=== PATIENT | female | born 1975 | race Caucasian/White ===

== ENCOUNTER 2022-05-21 08:35 | Emergency (ER) | payer BC, SELFPAY ==
[2022-05-21 08:56] VITALS: BP 131/74; PULSE 75; RESP 14; TEMP 36.3; O2SAT 99
--- NOTE | 2022-05-21 09:24 | ED.URI ---
HPI - URI/Sore Throat General Chief Complaint: Upper Respiratory Infection Stated Complaint: Sinus Time Seen by Provider: 05/21/22 09:24 Source: patient Mode of arrival: ambulatory Limitations: no limitations History of Present Illness HPI Narrative: patient is a 47-year-old female that presents with sinus congestion, sore throat, ear fullness for almost 2 weeks. patient was in [place] and states the smoke made symptoms worse. Has been taking Claritin and Flonase with mild relief, bloody nose with Flonase use. patient has allergy test next . Related Data Home Medications Medication Instructions Recorded Confirmed albuterol sulfate 90 mcg/actuation 2 puff inhalation DIRECTED PRN 05/21/22 05/21/22 aerosol inhaler Wheezing pantoprazole 40 mg tablet,delayed 40 mg PO DAILY 05/21/22 05/21/22 release Allergies Allergy/AdvReac Type Severity Reaction Status Date / Time No Known Allergies Allergy Unknown Verified 05/21/22 09:11 Review of Systems Review of Systems: All systems reviewed & are unremarkable except as noted in HPI and below Constitutional: Constitutional: Denies body ache(s), Denies fever(s), Denies headache(s), Denies malaise and Denies weakness Eyes: Eyes: Denies loss of vision ENT: Reports otalgia, Denies headache(s), Reports nasal congestion, Denies sinus pain and Reports sore throat Cardiovascular: Cardiovascular: Denies chest pain, Denies irregular heart rhythm and Denies dyspnea Respiratory: Respiratory: Reports cough and Denies dyspnea Gastrointestinal: Gastrointestinal: Denies abdominal pain, Denies melena, Denies hematochezia, Denies diarrhea, Denies nausea and Denies vomiting Musculoskeletal: Musculoskeletal: Denies back pain, Denies myalgias and Denies arthralgias Integumentary/Breasts: Skin/Breast: Denies pruritus and Denies rash Neurologic: Denies headache(s), Denies loss of vision and Denies weakness Psychiatric: Psychiatric: Reports no additional psychiatric complaints PMFSH Comments At time of signature, agree with nursing past medical, surgical, social and family history. There is no relevant family history pertinent to the presenting complaint. Exam Const: General: cooperative, healthy appearing, comfortable, no acute distress and well nourished Nutritional Appearance: well nourished Orientation/consciousness: patient oriented x3 Limitations: no limitations HENMT: Head: normal to inspection, normocephalic and atraumatic Ears: external ears normal and TM's normal bilaterally Face/Nose/Sinus: Normal external nose present, Abnormal mucous membranes and turbinates present erythematous bilateral, face symmetric and Facial tenderness on exam of face and sinuses Face and sinus: normal facial exam, sinuses nontender and face symmetric Mouth: Yes Normal oral and palatal mucosa present, Yes lip normal and Yes moist mucous membranes Teeth and gingiva: dentition normal Throat: posterior oropharynx normal, tonsils normal and uvula midline Eyes: General: appearance normal, both eyes and all related structures Alignment and Position: alignment normal and position normal Periorbital: periorbital findings normal Eyelids: eyelids normal Pupils: Equal, round and reactive pupils present Neck: Neck: normal visual inspection, full ROM and supple Chest: Chest palpation & inspection: normal inspection of the chest and normal palpation of entire chest wall Resp: Effort & Inspection: normal respiratory effort and able to speak in complete sentences Auscultation: clear to auscultation bilaterally, no crackles, no rales, no rhonchi and no wheezes Cardio: Rate: regular rate Rhythm: regular rhythm Heart sounds: S1 normal heart sound present and S2 normal heart sound present GI: Inspection: normal to inspection Skin: General skin exam: normal color and no rashes or lesions noted Neuro: General: patient oriented x3 and moves all extremities Cranial nerves: Yes Equal, round and reac
== END 2022-05-21 09:50 | disposition home or self-care (01) ==
PROVIDERS: Emergency Provider Nurse Practitioner Family
DX: J02.9 Acute pharyngitis, unspecified (principal)
CPT/HCPCS: 99213; G0463

== ENCOUNTER 2023-02-02 15:57 | Emergency (ER) | payer BC, SELFPAY ==
--- NOTE | ~2023-02-02 | XR_ITS ---
EXAMINATION: XR knee RT min 4V DATE: 02/02/2023 18:24 INDICATION: Right knee pain with bruising and swelling at the patella post fall TECHNIQUE: Anteroposterior, 2 oblique and crosstable lateral views of the right knee were obtained COMPARISON: None. FINDINGS: Alignment is normal. No fracture. Joint spaces appear normal on nonweightbearing imaging. No joint e ffusion/layering lipohemarthrosis. Soft tissues are unremarkable. IMPRESSION: 1. Negative right knee radiographs. Reviewed, dictated and finalized at location A. CH THERAPY ASSISTANT
--- NOTE | ~2023-02-02 | XR_ITS ---
EXAMINATION: XR hip RT 2V w AP pelvis DATE: 02/02/2023 18:24 INDICATION: Right pelvic pain TECHNIQUE: Anteroposterior view of the pelvis and anteroposterior and frog-leg lateral views of the r ight hip were obtained. COMPARISON: None. FINDINGS: Bone alignment is normal. No fracture. Chronic appearing small heterotopic ossicle near the tip of th e right greater trochanter. Bilateral hip and sacroiliac joint spaces are normal. There are few phleb oliths in the pelvis. IMPRESSION: 1. No osseous abnormality. Reviewed, dictated and finalized at location A. Y ROLLER IMPRESSION: 1. No osseous abnormality.
--- NOTE | ~2023-02-02 | CT_ITS ---
EXAMINATION: CT brain wo con DATE: 02/02/2023 18:15 INDICATION: Head injury TECHNIQUE: Computed tomography (CT) of the head was performed without intravenous contrast. Sagittal and coronal reconstructions were performed. The mA was adjusted according to patient size. Iterative reconstruction technique was employed. The dose-length product was 605.33 mGy-cm. COMPARISON: None FINDINGS: Small anterior right frontal scalp hematoma. No calvarial fracture. No acute intracranial hemorrhage, acute infarction or abnormal extra axial fluid collection. Ventricles are normal and symmetric. No m ass/mass effect. The orbits, paranasal sinuses and mastoid air cells are normal. IMPRESSION: 1. Normal brain. No fracture or acute intracranial process. Reviewed, dictated and finalized at location A. WAY PATROL OFFICER
--- NOTE | ~2023-02-02 | CT_ITS ---
EXAMINATION: CT lumbar spine wo con DATE: 02/02/2023 18:15 INDICATION: Low back pain post fall. TECHNIQUE: Computed tomography (CT) of the lumbar spine was performed without intravenous contrast. A utomated exposure control and iterative reconstruction technique were employed. The dose-length produ ct was 1250.94 mGy-cm. COMPARISON: None FINDINGS: Alignment is normal. Vertebral body heights are normal. No fracture. And mild to moderate disc height loss with mild degenerative endplate changes at L5-S1. Remaining disc heights are normal. There are disc bulges resulting in mild central canal stenosis at L3-L4 and L4-L5 and without significant centr al canal stenosis at L5-S1. There is multilevel mild facet osteoarthritis throughout the lumbar and v isualized lower thoracic spine. There is moderate neural foraminal stenosis bilaterally at L5-S1, mil d neural foraminal stenosis bilaterally at L3-L4 and L4-L5. Paravertebral soft tissues are unremarkab le. IMPRESSION: 1. Mild to moderate spondylosis at L5-S1 with mild spondylosis in the more cephalad lumbar and lower thoracic spine. No acute osseous abnormality. Reviewed, dictated and finalized at location A. ERECTOR IMPRESSION: 1. Mild to moderate spondylosis at L5-S1 with mild spondylosis in the more ceph alad lumbar and lower thoracic spine. No acute osseous abnormality.
--- NOTE | ~2023-02-02 | CT_ITS ---
EXAMINATION: CT cervical spine wo con DATE: 02/02/2023 18:15 INDICATION: Head injury presenting with head and neck pain. TECHNIQUE: Computed tomography (CT) of the cervical spine was performed without intravenous contrast. Automated exposure control and iterative reconstruction technique were employed. The dose-length pro duct was 442.80 mGy-cm. COMPARISON: None FINDINGS: Alignment is normal. Mild osteoarthritis at the atlantoaxial articulation. Vertebral body heights are normal. Mild disc height loss at C5-C6, T3 and T3-T4. There is minimal cervical uncovertebral osteoa rthritis. There is multilevel mild to moderate cervical and upper thoracic facet osteoarthritis, most prominent on the left at C3-C4 and on the right at C7-T1. This contributes to only minimal neural fo raminal stenosis at a few levels in the cervical spine. No central canal stenosis. Visualized cervica l soft tissues are unremarkable. Visualized apices of lungs are clear. IMPRESSION: 1. Minimal to mild cervical thoracic spondylosis. No acute osseous abnormality. Reviewed, dictated and finalized at location A. IFIED PERFORMANCE TECHNOLOGIST
[2023-02-02 16:05] VITALS: BP 146/92; PULSE 86; RESP 20; TEMP 36.1; O2SAT 98
--- NOTE | 2023-02-02 17:58 | ED.HEATRA ---
HPI - Head Injury General Chief complaint: Head Injury Stated complaint: HEAD INJURY Time Seen by Provider: 02/02/23 17:46 Source: patient Mode of arrival: wheelchair Limitations: no limitations History of Present Illness HPI Narrative: This is a 47 year old female that presents to the ER for a head injury. Reports she slipped and fell off her porch. Reports hitting her head and brief loss of consciousness. Reports neck pain and low back pain. Also reports right sided pelvic pain and knee pain. Denies vision changes, vomiting, numbness or weakness. Related Data Home Medications Medication Instructions Recorded Confirmed albuterol sulfate 90 mcg/actuation 2 puff inhalation DIRECTED PRN 05/21/22 05/21/22 aerosol inhaler Wheezing pantoprazole 40 mg tablet,delayed 40 mg PO DAILY 05/21/22 05/21/22 release Allergies Allergy/AdvReac Type Severity Reaction Status Date / Time ciprofloxacin AdvReac Hives Verified 02/02/23 17:41 Review of Systems Review of Systems: CONSTITUTIONAL: Denies fever EYES: Denies visual changes GASTROINTESTINAL: Denies vomiting MUSCULOSKELETAL: Reports back pain, joint pain, and myalgia. NEUROLOGIC: Reports headache. Denies numbness, or weakness. All systems reviewed & are unremarkable except as noted in HPI and below PMFSH Past Medical History Medical History (Updated 02/02/23 @ 18:57 by Halima Capellan PA-C) History of gastroesophageal reflux (GERD) Social History Social History (Updated 02/02/23 @ 18:51 by Halima Capellan PA-C) Substance use: never Exam Narrative: GENERAL: Well-appearing, well-nourished, and in no acute distress. HEAD: Normocephalic. Contusion to the right forehead EYES: PERRLA and EOMI. ENT: Nares clear, no rhinorrhea or epistaxis. Mucous membranes moist. Oropharynx without tonsillar hypertrophy exudate or other lesions. Bilateral TMs pearly lockhart non-bulging NECK: Supple. No adenopathy or masses. Midline cervical spine tenderness CHEST: Clear to auscultation. No respiratory distress. No wheezes rales or rhonchi HEART: Regular rate and rhythm. No murmur heard. Normal peripheral pulses. BACK: No midline thoracic spine tenderness. Tender to palpation of midline lumbar spine EXTREMITIES: Normal range of motion. No edema or obvious deformity. Strength equal in bilateral upper and lower extremities (5/5) SKIN: Warm, dry, no rash. NEURO: No focal deficits. Alert and oriented x3. CN II-XII grossly intact PSYCH: Normal mood and affect Course Course Emergency Course: Patient updated on workup and agrees with plan of care Vital Signs Vital signs: Vital Signs Temperature 97.0 F L 02/02/23 16:05 Pulse Rate 86 02/02/23 16:05 Respiratory Rate 20 02/02/23 16:05 Blood Pressure 146/92 H 02/02/23 16:05 Pulse Oximetry 98 02/02/23 16:05 Oxygen Delivery Room Air 02/02/23 16:05 Temperature 97.0 F L 02/02/23 16:05 Pulse Rate 86 02/02/23 16:05 Respiratory Rate 20 02/02/23 16:05 Blood Pressure 146/92 H 02/02/23 16:05 Pulse Oximetry 98 02/02/23 16:05 Oxygen Delivery Room Air 02/02/23 16:05 MDM - Head Injury MDM Narrative Medical decision making narrative: Patient presents to the emergency department after a fall today with head injury. She is neurologically intact. CT scans of the brain cervical spine without acute findings. Patient also reporting low back pain, right hip pain, and right knee pain. CT scan of her lumbar spine without acute abnormalities. X-rays of the right hip/pelvis and right knee without acute osseous abnormalities. Patient was updated on workup. Instructed on care of concussion. She is to follow up with her primary provider. She was given warnings to return to the ER Differential Diagnosis Differential diagnosis: Likely closed head injury, subdural hematoma, concussion with loss of consciousness and other (cervical strain, cervical spine fracture, pelvic fracture, patellar fracture, lumbar s
[2023-02-02] MEDS: ACETAMINOPHEN 500 MG TABLET 1000 MG PO (18:39)
== END 2023-02-02 19:13 | disposition home or self-care (01) ==
PROVIDERS: Emergency Provider Physician Assistant
DX: S09.90XA Unspecified injury of head, initial encounter (principal); S80.01XA Contusion of right knee, initial encounter; M54.50 Low back pain, unspecified; M25.551 Pain in right hip; M25.561 Pain in right knee; W17.89XA Other fall from one level to another, initial encounter; Y92.009 Unspecified place in unspecified non-institutional (private) residence as the place of occurrence of the external cause
CPT/HCPCS: 70450; 72125; 72131; 73502; 73564; 99284; A9270

== ENCOUNTER 2023-04-08 07:29 | Emergency (ER) | payer BC, SELFPAY ==
--- NOTE | ~2023-04-08 | XR_ITS ---
EXAMINATION: XR chest 1V portable INDICATION: Chest pain TECHNIQUE: Portable AP chest at 0801 hours COMPARISON: None available FINDINGS: The lungs are free of acute opacities. No pleural effusion or pneumothorax. The cardiomedia stinal silhouette is normal. IMPRESSION: 1. No acute cardiopulmonary abnormality. Reviewed, dictated and finalized at location F. SPECIALIST
--- NOTE | 2023-04-08 07:39 | ECG_ITS ---
Measurements Intervals [place] Rate: 78 P: 53 NM: 188 QRS: 3 QRSD: 78 T: 29 QT: 365 QTc: 418 Interpretive Statements SINUS RHYTHM LOW QRS VOLTAGE IN PRECORDIAL LEADS Electronically Signed On 04-08-2023 12:35:03 FINANCIAL SERVICES CONSULTANT by Leonidas Velásquez M.D.
--- NOTE | 2023-04-08 07:40 | ED.CHESTPAIN ---
HPI - Chest Pain General Chief Complaint: Chest Pain Stated Complaint: chest pain/arm pain/jaw pain/congestion Time Seen by Provider: 04/08/23 07:33 History of Present Illness HPI narrative: 48-year-old female presenting to the emergency department for evaluation of some left-sided chest pain some left jaw numbness and some left arm pain. Patient states the symptoms have been ongoing for an extended period of time. Patient states that the left arm pain has been going on for few weeks and that she has had constant numbness into her left jaw. Patient was telling her friend about the symptoms and she was encouraged to present to the emergency department for evaluation. Patient denies any associated shortness of breath nausea vomiting or diarrhea. Patient does have some upper respiratory symptoms with congestion. Patient denies any prior history MD, patient states she is prediabetic but is unsure her cholesterol status. Related Data Home Medications Medication Instructions Recorded Confirmed albuterol sulfate 90 mcg/actuation 2 puff inhalation DIRECTED PRN 05/21/22 05/21/22 aerosol inhaler Wheezing pantoprazole 40 mg tablet,delayed 40 mg PO DAILY 05/21/22 05/21/22 release Allergies Allergy/AdvReac Type Severity Reaction Status Date / Time ciprofloxacin AdvReac Hives Verified 04/08/23 07:48 Review of Systems Review of Systems: All systems reviewed & are unremarkable except as noted in HPI and below PMFSH Past Medical History Medical History (Updated 04/08/23 @ 11:30 by Ilan Bynum MD) History of gastroesophageal reflux (GERD) Social History Social History (Updated 02/02/23 @ 18:51 by Halima Capellan PA-C) Substance use: never Exam Narrative: APPEARANCE: Well appearing, no pain, no distress, well-nourished. HEAD: normocephalic, atraumatic. EYES: PERRLA/EOMI, conjunctivae clear. NOSE: Normal no drainage NECK: Supple. No adenopathy, no masses. RESPIRATORY: Airway patent, respirations nonlabored. Clear to auscultation bilaterally, no rales, rhonchi, wheezing. CARDIOVASCULAR: Regular rate and rhythm without murmurs rubs or gallops. ABDOMINAL: Soft, nontender, nondistended, normal bowel sounds MUSCULOSKELETAL: Moves all extremities. Strength/ROM intact, No edema, No calf tenderness. NEURO: Alert. Cranial nerves II through XII intact. Grossly intact SKIN: Warm, dry. Normal Color Course Course Emergency Course: 48-year-old female presenting to the emergency department for evaluation of arm and chest pain. Patient is afebrile with no leukocytosis and a stable hemoglobin. Patient had a negative D-dimer so no concern for pulmonary embolism. Patient had negative serial troponins. EKG showed no evidence of acute STEMI. Patient was updated on results of the workup patient was comfortable the plan for discharge and close follow-up for further outpatient workup including an outpatient stress test. All questions concerns were addressed patient was comfortable with plan. Vital Signs Vital signs: Vital Signs Temperature 97.5 F L 04/08/23 07:44 Pulse Rate 73 04/08/23 07:44 Respiratory Rate 18 04/08/23 07:44 Blood Pressure 143/81 H 04/08/23 07:44 Pulse Oximetry 99 04/08/23 07:44 Oxygen Delivery Room Air 04/08/23 07:44 Temperature 97.5 F L 04/08/23 07:44 Pulse Rate 61 04/08/23 11:39 Respiratory Rate 18 04/08/23 11:39 Blood Pressure 131/81 04/08/23 11:39 Pulse Oximetry 100 04/08/23 11:39 Oxygen Delivery Room Air 04/08/23 07:44 MDM - Chest Pain Differential Diagnosis Differential diagnosis: Likely atypical chest pain and costochondritis Lab Data Attestation: I reviewed the patient's lab results. 04/08/23 07:49 04/08/23 07:49 Labs: Lab Results 04/08/23 04/08/23 04/08/23 Range/Units 07:49 07:55 10:38 WBC 6.7 (4.5-10.0) K/mm3 RBC 4.70 (4.2-5.4) M/mm3 Hgb 13.6 (12.0-15.0) g/dL Hct 41.9 (37
[2023-04-08 07:44] VITALS: BP 143/81; PULSE 73; RESP 18; TEMP 36.4; O2SAT 99
[2023-04-08 07:50] VITALS: PULSE 78
[2023-04-08] MEDS: ASPIRIN 81 MG CHEWABLE TABLET 324 MG PO (07:55)
[2023-04-08 07:56] LABS: Basophils Percent Auto 0.6 % (0.2-1.2); Eosinophils Absolute Auto 0.1 K/mm3 (0-0.3); Eosinophils Percent Auto 1.5 % (0-4.4); Hematocrit 41.9 % (37.0-47.0); Hemoglobin 13.6 g/dL (12.0-15.0); Immature Granulocyte Absolute 0.01 K/mm3 (0.00-0.031); Immature Granulocyte Percent A 0.1 % (0-0.5); Lymphocytes Absolute Auto 2.36 K/mm3 (0.9-3.2); Lymphocytes Percent Auto 35.4 % (18.3-44.2); Mean Corpuscular HGB Conc 32.5 g/dl (32-36); Mean Corpuscular Hemoglobin 28.9 pg (26-34); Mean Corpuscular Volume 89.1 fl (80-100); Mean Platelet Volume 9.8 fl (7.4-10.4); Monocytes Absolute Auto 0.5 K/mm3 (0.1-0.6); Monocytes Percent Auto 6.9 % (2.6-8.5); Neutrophils Absolute Auto 3.7 K/mm3 (1.3-6.7); Neutrophils Percent Auto 55.5 % (45.5-73.1); Platelet Count Result 233 k/mm3 (150-375); Red Cell Distribution Width 13.3 % (11.5-14.5); White Blood Count 6.7 K/mm3 (4.5-10.0)
[2023-04-08 08:10] LABS: Alanine Aminotransferase 20 U/L (6-35); Albumin Level 3.7 g/dL (3.5-5.1); Alkaline Phosphatase 99 U/L (38-126); Anion Gap 5 mmol/L (8-16); Aspartate Amino Transferase 13 U/L (14-36); Bilirubin,Total 0.9 mg/dL (0.2-1.3); Blood Urea Nitrogen 12 mg/dL (7-17); Carbon Dioxide 28 mmol/L (22-30); Chloride 107 mmol/L (98-107); Estimated CRCL calculation 78 ml/min; Estimated Glomerular Filt Rate > 60; Glucose 154 mg/dL (65-110); Lipase 61 U/L (23-300); Potassium 3.8 mmol/L (3.4-5.0); Sodium 140 mmol/L (137-145)
[2023-04-08 08:16] LABS: Partial Thromboplastin Time 30.2 SECONDS (22.3-36.8)
[2023-04-08 08:20] LABS: NT Pro B Type Natriuretic Pept 55 pg/mL (19.9-100); Troponin I < 0.012 ng/mL (0.000-0.034)
[2023-04-08 08:22] LABS: D Dimer 0.27 ug/mL (<0.48)
[2023-04-08 08:34] LABS: Appearance Urine Cloudy (Clear); Bacteria Urine None Seen /hpf; Bilirubin Urine Negative (Negative); Blood Urine Negative (Negative); Color Urine Yellow (Yellow); Glucose Urine UA Negative (Negative); Ketones Urine Negative (Negative); Leukocyte Esterase Ur 1+ LEU/UL (Negative); Need Manual Microscopic Reviewed; Nitrate Urine Negative (Negative); Non Pathogenic Casts 0-2; Protein Urine Negative (Negative); RBC Urine 0-2 /hpf (0-2); Specific Grav Ur 1.013 (1.001-1.035); Squamous Epithelial Cell Urine Occasional /hpf (Few); Urobilinogen Urine 0.2 mg/dL (<2.0); WBC Urine 0-5 /hpf; pH Urine 7.5 (5.0-9.0)
[2023-04-08 08:35] LABS: Add Urine Microscopic? YES
[2023-04-08 08:38] LABS: Prothrombin Time 13.5 Seconds (11.1-14.7)
[2023-04-08 08:39] LABS: Influenza A QL RT-PCR Negative (Negative); Influenza B QL RT-PCR Negative (Negative); RSV RNA, RT-PCR Negative (Negative); SARS-CoV-2 RNA PCR Negative (Negative)
[2023-04-08 09:06] VITALS: BP 125/71; PULSE 68; RESP 14; O2SAT 98
--- NOTE | 2023-04-08 10:34 | ECG_ITS ---
Measurements Intervals [place] Rate: 53 P: 56 UT: 207 QRS: 13 QRSD: 82 T: 23 QT: 408 QTc: 384 Interpretive Statements SINUS BRADYCARDIA LOW QRS VOLTAGE IN PRECORDIAL LEADS Electronically Signed On 04-08-2023 12:35:53 MATERIAL HANDLING EQUIPMENT STEVEDORE by Leonidas Velásquez M.D.
[2023-04-08 10:40] VITALS: BP 131/73; PULSE 66; RESP 14; O2SAT 100
[2023-04-08 11:04] LABS: Troponin I 0.022 ng/mL (0.000-0.034)
[2023-04-08 11:39] VITALS: BP 131/81; PULSE 61; RESP 18; O2SAT 100
== END 2023-04-08 11:43 | disposition home or self-care (01) ==
PROVIDERS: Emergency Provider Emergency Medicine
DX: R07.89 Other chest pain (principal); Z20.822 Contact with and (suspected) exposure to COVID-19; R73.03 Prediabetes; K21.9 Gastro-esophageal reflux disease without esophagitis; R00.1 Bradycardia, unspecified
CPT/HCPCS: 36415; 71045; 80053; 81001; 81003; 81025; 83690; 83880; 84484; 85025; 85380; 85610; 85730; 87637; 93005; 99284; A9270

== ENCOUNTER 2023-07-18 00:18 | Day surgery (SDC) | payer BC, SELFPAY ==
[2023-07-10 11:35] VITALS: BMI 32.3
[2023-07-18 08:47] VITALS: BP 135/104; PULSE 78; RESP 18; TEMP 36.1; O2SAT 99
--- NOTE | 2023-07-18 08:58 | WPDANESEPPF ---
Anes - Initial Pre Proc Eval Procedure: Operation Date: 07/18/23 10:00 Proposed Procedures p Esophagogastroduodenoscopy - Deep Shepherd MD Date/Time: 07/18/23 08:58 Surgeon: Deep Shepherd MD Pre Op Diagnosis: Abd. distension, Diarrhea Patient Data Age: 48 Gender: F Height: 1.63 m Weight: 86 kg Last Vital Signs Temp 97 F L 07/18/23 08:47 Pulse 78 07/18/23 08:47 Resp 18 07/18/23 08:47 BP 135/104 H 07/18/23 08:47 Pulse Ox 99 07/18/23 08:47 O2 Del Method Room Air 07/18/23 08:47 Allergies Allergy/AdvReac Type Severity Reaction Status Date / Time ciprofloxacin Allergy Intermediate Hives Verified 07/18/23 08:45 Home Medications Medication Instructions Recorded Confirmed Type albuterol sulfate 90 mcg/actuation 2 puff inhalation DIRECTED PRN 05/21/22 07/10/23 History aerosol inhaler Wheezing loratadine 10 mg tablet (Claritin) 10 mg PO DAILY 06/29/23 07/10/23 History Patient hx anesthesia problems: none Family hx anesthesia problems: none Results Review: All pre-operative results and documents have been reviewed as part of the pre-operative evaluation. [facility] Past Medical History Medical History (Updated 06/29/23 @ 14:57 by Deep Shepherd MD) Bloating Diarrhea Fatty liver History of gastroesophageal reflux (GERD) Social History Social History Years smoked: 3 Smoking status: Former smoker Tobacco type: cigarettes Alcohol intake: current Substance use: never Substance use type: does not use Living arrangements: with family Spiritual care concerns: No Anes - Eval Final PreProcedure Day of Procedure 07/18/23 08:58 Patient weight: obese Heart: regular rate and rhythm Lungs: clear to auscultation Airway: Mallampati scale class II Neurological: alert and oriented Last oral intake: >/= 8 hours ASA classification: II Emergent: no Anesthetic plan: proceed Anesthesia type and monitoring: general GIVS and standard monitoring Results Review: All pre-operative results and documents have been reviewed as part of the pre-operative evaluation. Informed Consent: The patient's anesthetic plan and its attendant risks and benefits were discussed with the patient/family/POA. Questions were solicited and answers provided to the satisfaction of the patient/family/POA.
[2023-07-18] MEDS: LACTATED RINGERS 1,000 ML 150 ML IV CONT (09:02)
--- NOTE | 2023-07-18 09:44 | WPDHPUPDATE1 ---
History and Physical Update Update Date/Time: 07/18/23 09:44 History and Physical has been reviewed, including an updated exam of the patient. There are NO changes in the patient's condition. Risks, benefits, and alternatives have been discussed and questions answered. Patient agrees to proceed with procedure.
[2023-07-18 09:54] VITALS: BP 105/68; PULSE 70; RESP 17; O2SAT 99
[2023-07-18 10:04] VITALS: BP 109/71; PULSE 59; RESP 14; O2SAT 97
[2023-07-18 10:14] VITALS: BP 122/83; PULSE 58; RESP 16; O2SAT 99
== END 2023-07-18 10:23 | disposition home or self-care (01) ==
PROVIDERS: PCP Physician Assistant; Visit Provider Internal Medicine Gastroenterology
PROC: 0DJ08ZZ Inspection of Upper Intestinal Tract, Via Natural or Artificial Opening Endoscopic (ICD-10-PCS; CPT 43235; principal; 2023-07-18 10:00)
DX: K29.70 Gastritis, unspecified, without bleeding (principal); Z79.51 Long term (current) use of inhaled steroids; Z87.891 Personal history of nicotine dependence; E66.9 Obesity, unspecified; Z68.32 Body mass index [BMI] 32.0-32.9, adult
CPT/HCPCS: 43239; 88305; J2704; J7120

== ENCOUNTER 2024-04-30 15:27 | Emergency (ER) | payer BC, SELFPAY ==
--- NOTE | ~2024-04-30 | XR_ITS ---
EXAMINATION: XR chest 2V DATE: 04/30/2024 16:11 INDICATION: Cough. TECHNIQUE: Frontal and lateral views of the chest were obtained. COMPARISON: Chest view 04/08/2023 FINDINGS: There is no pneumonia, pleural effusion, or pneumothorax. The heart size is normal. IMPRESSION: 1. No acute cardiopulmonary disease. Reviewed, dictated and finalized at location A. BALANCER
[2024-04-30 15:40] VITALS: BP 136/85; PULSE 100; RESP 18; TEMP 37.1; O2SAT 98
--- NOTE | 2024-04-30 15:44 | ED_ITS ---
HPI - URI/Sore Throat General Chief Complaint: Upper Respiratory Infection Stated Complaint: deep breaths are difficult,prior fever,dizzy Time Seen by Provider: 04/30/24 15:44 Source: patient, RN notes reviewed and old records reviewed Mode of arrival: ambulatory Limitations: no limitations History of Present Illness HPI Narrative: Patient presents with complaints of cough for over a week. She reports that couple of weeks ago she was sick with a febrile illness, recovered from that, now cannot get over the cough. She has been trying multiple dsvr-ekh-piedwnh medications for her symptoms. She reports worst is when she is trying to sleep. She states that she has had some intermittent wheezing. She denies any shortness of breath. States she is much more tired than normal. She is not in any acute distress. Denies any injury or trauma. No other concerns or complaints today Related Data Home Medications ?Medication ?Instructions ?Recorded ?Confirmed ?Last Taken ?Type albuterol sulfate 90 mcg/actuation 2 puff inhalation DIRECTED PRN 05/21/22 07/10/23 Unknown History aerosol inhaler Wheezing loratadine 10 mg tablet (Claritin) 10 mg PO DAILY 06/29/23 07/10/23 Unknown History Allergies Allergy/AdvReac Type Severity Reaction Status Date / Time ciprofloxacin Allergy Intermediate Hives Verified 04/30/24 15:50 Review of Systems Review of Systems: All systems reviewed & are unremarkable except as noted in HPI and below Constitutional: Constitutional: Reports no additional constitutional complaints, Reports daytime sleepiness and Reports lethargy ENT: Reports system reviewed and no additional complaints, except as documented Cardiovascular: Cardiovascular: Reports no additional cardiovascular complaints Respiratory: Respiratory: Reports no additional respiratory complaints, Reports cough, Reports pain with cough and Reports wheezing Gastrointestinal: Gastrointestinal: Reports no additional gastrointestinal complaints [facility] Past Medical History Medical History (Updated 04/30/24 @ 16:32 by Mandy Bates APRN) Fatty liver Bloating Diarrhea History of gastroesophageal reflux (GERD) Social History Social History Years smoked: 3 Smoking status: Former smoker Tobacco type: cigarettes Alcohol intake: current Substance use: never Substance use type: does not use Living arrangements: with family Spiritual care concerns: No Comments At the time of my signature, I reviewed and agree with the nursing past medical, surgical, social, and family history. There is no relevant family history pertinent to the patient complaint. Exam Const: General: cooperative, no acute distress, alert and awake Orientation/consciousness: oriented to person, oriented to place and oriented to time HENMT: Head: normal to inspection Mouth: Yes moist mucous membranes Resp: Effort & Inspection: normal respiratory effort and able to speak in complete sentences Auscultation: clear to auscultation bilaterally, no crackles, no rales, no rhonchi and no wheezes Other: Barking cough noted Cardio: Palpation: normal PMI Rate: regular rate Rhythm: regular rhythm Heart sounds: S1 normal heart sound present and S2 normal heart sound present Neuro: General: oriented to person, oriented to place and oriented to time Cranial nerves: Yes CN's II-XII intact bilaterally Psych: Appearance: grossly normal Thought process: Normal thought process present Insight: Good insight present (Psych) Judgement: Good judgement present (Psych) Course Course Level of Care: Express Care Visit Vital Signs Vital signs: Vital Signs Temperature 98.8 F 04/30/24 15:40 Pulse Rate 100 04/30/24 15:40 Respiratory Rate 18 04/30/24 15:40 Blood Pressure 136/85 04/30/24 15:40 Pulse Oximetry 98 04/30/24 15:40 Oxygen Delivery Room Air 04/30/24 15:40 Temperature 98.8 F 04/30/24 15:40 Pulse Rate 100 04/30/24 15:40 Respiratory Rate 18 04/30/24 15:40 Blood Pressure 136/85 04/30/24 15:40 Pulse Oximetry 98 04/30/24 15:40 Oxygen Delivery Room Air 04/30/24 15:40 Reviewed MDM - URI/Sore Throat MDM Narrative Medical decision making narrative: Reassuring physical exam, chest x-ray normal. History and physical consistent with bronchitis. Start prednisone, bronchodilator Discharge instructions reviewed with patient, as well as provided in writing per nursing staff. The instructions also include specific and strict return/GO TO THE ER as well as f/u information. All questions have been answered, and the patient deny any further questions with discharge and discharge plan. Some parts of this dictation were generated by voice recognition software and may contain typographical and/or grammatical inaccuracies. Differential Diagnosis Differential diagnosis: Likely upper respiratory infection, otitis media, viral infection and bronchitis Medical Records Attestation: I reviewed the patient's medical records. Imaging Data Attestation: I personally reviewed and interpreted this imaging study as follows: My impression: No acute finding Radiologist's impression: [facility] [address] [place] [address] XRay Report Signed Patient: Jarad Shabazz : 1975 MR#: [id number] Age: 49 Acct:[id number] Loc: [facility] ADM Date: 04/30/24Attending Dr: Ordering Physician: Mandy Bates FNP Date of Service: 04/30/24 Procedure(s): XR chest 2V Accession Number(s): [id number] cc: Mandy Bates FNP~ EXAMINATION: XR chest 2V DATE: 04/30/2024 16:11 INDICATION: Cough. TECHNIQUE: Frontal and lateral views of the chest were obtained. COMPARISON: Chest view 04/08/2023 FINDINGS: There is no pneumonia, pleural effusion, or pneumothorax. The heart size is normal. IMPRESSION: 1. No acute cardiopulmonary disease. Reviewed, dictated and finalized at location A. ONAL COUNSELOR Please be advised this is a medical document. It is intended for wwic-ae-iehd communication. It is written in medical language and may contain unfamiliar abbreviations or verbiage. Medical documents are intended to carry relevant information, facts as evident, and the clinical opinion of the practitioner at the time of the encounter. This report may have been done utilizing a voice recognition system. Attempts have been made to correct errors. However, there may be uncorrected grammatical, spelling, and recognition errors present. The file time of this note does not necessarily represent the time of service. Dictated By: Tomas Osullivan MD 04/30/24 1611 Signed By: <Electronically signed by Tomas Osullivan MD in OV> Discharge Plan Discharge Clinical Impression: Bronchitis Patient Disposition: Home, Self-Care Condition: Stable Instructions: Antibiotic Form, Acute Bronchitis (ED) Additional Instructions: Take medications as prescribed. Follow with primary care provider. Emergency department for new or worse symptoms Patient Language: German Prescriptions: New prednisone 50 mg tablet 50 mg PO DAILY Qty: 5 0RF albuterol sulfate [Ventolin HFA] 90 mcg/actuation HFA aerosol inhaler 2 puff inhalation QID PRN (Reason: shortness of breath or wheezing) Qty: 8.5 0RF benzonatate 200 mg capsule 200 mg PO TID PRN (Reason: cough) Qty: 30 0RF prednisone 50 mg tablet 50 mg PO DAILY Qty: 5 0RF albuterol sulfate [Ventolin HFA] 90 mcg/actuation HFA aerosol inhaler 2 puff inhalation QID PRN (Reason: shortness of breath or wheezing) Qty: 8.5 0RF benzonatate 200 mg capsule 200 mg PO TID PRN (Reason: cough) Qty: 30 0RF No Action albuterol sulfate 90 mcg/actuation HFA aerosol inhaler 2 puff INHALATION DIRECTED PRN (Reason: Wheezing) loratadine [Claritin] 10 mg tablet 10 mg PO DAILY Follow-up/Referrals: PHYSICIAN NOT ON STAFF,NONSTAFF [Primary Care Provider] - Stand Alone Forms: Work/School Release IP Time of Disposition: 16:33
== END 2024-04-30 16:35 | disposition home or self-care (01) ==
PROVIDERS: Emergency Provider Nurse Practitioner Family
DX: J40 Bronchitis, not specified as acute or chronic (principal); K21.9 Gastro-esophageal reflux disease without esophagitis; K76.0 Fatty (change of) liver, not elsewhere classified; Z87.891 Personal history of nicotine dependence
CPT/HCPCS: 71046; 99213; G0463